=== PATIENT | female | born 1960 | race Hispanic/Latino ===

== ENCOUNTER 2018-08-07 05:24 | Observation (INO) | payer BC ==
[~2018-08-07] VITALS: Ht 165.1 cm; Wt 75.3 kg
[~2018-08-07 05:24] MED LIST: SLEEP AID25 M1; VITAMIN D3400 UNIT
[2018-08-07] MEDS ORDERED: CEFAZOLIN SOD 2 GM/D5W 50ML 50 ML IV ONE (06:32)
[2018-08-07] MEDS ORDERED: GABAPENTIN 300 MG CAP ONE (06:32)
[2018-08-07] MEDS ORDERED: CELECOXIB 200 MG CAP ONE (06:32)
[2018-08-07] MEDS ORDERED: DEXAMETHASONE SOD PHOS 10 MG/1 ML VIAL ONE (06:32)
[2018-08-07] MEDS ORDERED: SODIUM CHLORIDE 0.9% 500ML 500 ML ONE (06:37)
[2018-08-07] MEDS ORDERED: VANCOMYCIN HCL 1,000 MG ONE (06:37)
[2018-08-07] MEDS ORDERED: TRANEXAMIC ACID 1,000 MG/10 ML ML ONE (06:38)
[2018-08-07] MEDS ORDERED: BACITRACIN 50,000 UNIT VIAL ONE (06:38)
[2018-08-07] MEDS ORDERED: [UNRECOGNIZED DRUG - OTHER] PO (06:47)
[2018-08-07] MEDS ORDERED: VENTOLIN HFA18 GM INH (06:47)
[2018-08-07] MEDS ORDERED: ROPIVACAINE 246.25 MG, EPINEPHRINE HCL 1:1000 1ML 0.5 MG, CLONIDINE HCL 0.08 MG, KETORO... INJ ONE ×5 (07:30)
[2018-08-07] MEDS: ASPIRIN 325 MG TAB PO SCH ×2 (08:40→17:37)
[2018-08-07] MEDS: SODIUM CHLORIDE 0.9% 1000ML 1,000 ML IV SCH ×2 (08:50→17:07)
[2018-08-07] MEDS ORDERED: PROMETHAZINE HCL (IM) 25 MG/ML VIAL INJ PRN (09:00)
[2018-08-07] MEDS ORDERED: CELECOXIB 100 MG CAP PO SCH (09:00)
[2018-08-07] MEDS ORDERED: ZOLPIDEM TARTRATE 5 MG TAB PO PRN (09:00)
[2018-08-07] MEDS ORDERED: HYDROCODONE/APAP 5MG-325MG TAB PO PRN (09:00)
[2018-08-07] MEDS ORDERED: HYDROCODONE/APAP 7.5MG-325MG 1 EA TAB PO PRN (09:00)
[2018-08-07] MEDS ORDERED: ONDANSETRON HCL INJ 2MG/ML 2ML 2 MG/ML VIAL IV PRN (09:00)
[2018-08-07] MEDS ORDERED: DIPHENHYDRAMINE HCL INJ 50 MG/ML VIAL IM/IV PRN (09:00)
[2018-08-07] MEDS ORDERED: ACETAMINOPHEN 650 MG SUPP PR PRN (09:00)
[2018-08-07] MEDS ORDERED: DOCUSATE SODIUM 100 MG CAP PO PRN (09:00)
[2018-08-07] MEDS ORDERED: KETOROLAC TROMETHAMINE 30 MG/ML VIAL IV PRN ×2 (09:00→12:00)
[2018-08-07] MEDS ORDERED: HYDROMORPHONE 2MG/ML 2 MG/ML ML ONE (09:14)
[2018-08-07] MEDS ORDERED: FENTANYL CITRATE/PF 100MCG/2 ML INJ ONE ×2 (09:26→19:55)
--- NOTE | 2018-08-07 10:14 | Diagnostic Imaging Report ---
Exam: Right knee series; portable 2 views dated 08/07/2018 History: Knee replacement Comparison: None available Findings: Total knee prosthesis is present. Midline surgical kiana and air in the joint space is noted. Impression: Status post total knee replacement with prosthesis in good position Signed by: Dr. Johny Chandra DO on 08/07/2018 10:11 AM
--- OUTSIDE RECORDS SUMMARY | 2018-08-07 11:06 | XMS REPORT ---
Author Author [facility] Address Unknown Phone Unavailable Care Team Providers Care Director Trial Name Role Phone ENDY DAUGHERTY Unavailable Unavailable Payers Payer Name Policy Type Policy Number Effective Date Expiration Date Problems This patient has no known problems. Allergies, Adverse Reactions, Alerts Allergy Name Allergy Type Status Severity Reaction(s) Onset Date Inactive Date Treating Clinician Comments No Known Allergies DA Active U 2012-04-24 00:00:00 Medications This patient has no known medications. Results Test Description Test Time Test Comments Text Results Atomic Results Result Comments KNEE RIGHT 1-2 VIEWS 2018-08-07 10:08:00 [place] [id number] Patient Name: WILLIS THAYER MR #: [id number] : 1960 Age/Sex: 58/F Req #: [id number] Adm Physician: Ordered by: ENDY DAUGHERTY MD Report #: [id number] Location: OR Room/Bed: Procedure: [id number] DX/KNEE RIGHT 1-2 VIEWS Exam Date: 08/07/18 Exam Time: 919 REPORT STATUS: Signed Exam: Right knee series; portable 2 views dated 08/08/19 19 History: Knee replacement Comparison: None available Findings: Total knee prosthesis is present. Midline surgical kiana and air in the joint space is noted. Impression: Status post total knee replacement with prosthesis in good position Signed by: Dr. Ash Chandra DO on 08/07/2018 10:11 AM Dictated By: ASH CHANDRA DO 1011 Transcribed By: JF on 08/07/18 1011 COPY TO: ENDY DAUGHERTY MD
--- NOTE | 2018-08-07 11:42 | NUR ---
Patient transferred to unit from PACU. Patient is post op right knee replacement. Dressing clean and dry to right knee. Pedal pulses palpable. Lung rosario clear to auscultation. Bowel sounds present x4 but hypoactive. left forearm IV in place. Patient is due to void. Latvian speaking only
[2018-08-07 12:00] VITALS: BP 116/60
[2018-08-07] MEDS ORDERED: DESFLURANE 240 ML BTL INH ONE (13:12)
[2018-08-07] MEDS ORDERED: LIDOCAINE HCL 2% LOCAL INJ 5 ML SDV VIAL INJ ONE (13:12)
[2018-08-07] MEDS ORDERED: LIDOCAINE HCL 2% JELLY 5 ML TUBE ONE (13:12)
[2018-08-07] MEDS ORDERED: ONDANSETRON HCL INJ 2MG/ML 2ML 2 MG/ML VIAL ONE (13:12)
[2018-08-07] MEDS ORDERED: PROPOFOL IV EMULSION 10 MG/ML 20 ML VIAL ONE (13:12)
--- NOTE | 2018-08-07 13:13 | Operative Report ---
DATE OF PROCEDURE: 08/07/2018 SURGEON: Doug Chen MD SANITATION MANAGER: Alec Poe, certified PA. PREOPERATIVE DIAGNOSIS: Osteoarthritis, right knee. POSTOPERATIVE DIAGNOSIS: Osteoarthritis, right knee. PROCEDURE: Right total knee arthroplasty. INDICATIONS: The patient is an active 58-year-old lady, who has end-stage arthritis of her right knee. She has failed conservative management and would like to proceed with a right knee replacement. The risks and benefits of the surgery have been explained. She states she understands and wishes to proceed. PROCEDURE IN DETAIL: The patient was brought to the operating room and placed under general anesthetic. She received prophylactic antibiotics, a regional block and tranexamic acid in the holding area. Her right lower extremity was prepped and draped in the sterile manner. A preoperative time-out was performed. The extremity was exsanguinated and a proximal tourniquet was inflated to 300 mmHg. An anterior approach with a medial parapatellar arthrotomy was performed. Clear synovial fluid was removed from the joint. Soft tissue releases were performed to bring the knee up into flexion with the patella everted. The anterior cruciate ligament was sacrificed. Marginal osteophytes and meniscal remnants were carefully removed. A RiosNoteSicket Persona knee system was used throughout the case. An extramedullary cutting guide was placed onto the leg. The tibia was resected with a +4 mm cut, referenced off the medial compartment. The tibial base plate was a size number D. The central fin punch was impacted and attention was directed toward the distal femur. An intramedullary cutting guide was used to resect the distal femur in 5 degrees of valgus and rotation referencing off a combination of landmarks including Whitesides line, the epicondylar axis and the posterior condyles. The femoral component was a size #5. The anterior and posterior cuts were made. Trial reductions were performed. A 10 mm medial congruent insert provided appropriate soft tissue balancing in full extension and 90 degrees of flexion. The patella was resurfaced with a 29 mm patellar button. The thickness was checked before and after and was right at 22 mm. Patellar tracking was noted to be concentric. The trial implants were then all removed. A 100 mL premixed pericapsular NOHEMI injection was injected into the surrounding soft tissue. The knee was thoroughly irrigated with a shower tip pulsatile lavage. Throughout the case, a spray bottle of diluted polymyxin and vancomycin was used to irrigate the bone cut and irrigate the knee. A single mix of Palacos cement preloaded with antibiotics was used to cement the components into place. Care was taken to remove extravasated cement. The wound was further irrigated while the cement cured. The arthrotomy was then closed with interrupted #1 Ethibond. The knee was put through flexion and extension to ensure a secure closure. The skin was closed with subcuticular Vicryl and kiana. A sterile Aquacel bandage was applied. The patient was extubated and transported to the recovery room in stable condition. Blood loss was minimal. All needle and sponge counts were correct. Doug Chen MD DR/SONY /[id number]
[2018-08-07 13:24] VITALS: BP 116/60
[2018-08-07 13:27] VITALS: BP 116/60
--- NOTE | 2018-08-07 13:51 | NUR ---
Visit made by the Spiritual Care Department Pastoral Visitor, Cielo England. Pt sleeping soundly and no family present. Pastoral Visitor left a card describing availability of banking analyst and instructions on how to contact a banking analyst. BEATRIZ OCONNOR [employer] Spiritual Care Department O: [phone] Pager: [phone] ([phone] number calling from)
[2018-08-07] MEDS: ACETAMINOPHEN 1000 MG/100 ML IV SCH ×3 (14:05→23:05)
[2018-08-07] MEDS: CEFAZOLIN SOD 1 GM/NS 50ML 50 ML IV SCH ×2 (14:06→22:00)
[2018-08-07] MEDS ORDERED: LIDOCAINE 2% /EPINEPHRINE 20 ML SDV INJ ONE (14:16)
[2018-08-07] MEDS ORDERED: ROPIVACAINE 0.5% 5 MG/ML 30 ML SDV ONE (14:16)
--- NOTE | 2018-08-07 15:00 | NUR ---
Patient c/o nausea and not feeling well. PRN antiemetic given. Therapy working with patient and threw up again. Patient voided at this time as well
[2018-08-07] MEDS ORDERED: SODIUM CHLORIDE 0.9% 50ML 50 ML ONE (15:08)
[2018-08-07 16:06] VITALS: BP 119/67
[2018-08-07] MEDS: CELECOXIB 200 MG CAP PO SCH (17:36)
--- NOTE | 2018-08-07 17:46 | NUR ---
Patient is requesting per family translation to hold off on CPM until later this evening
[2018-08-07] MEDS ORDERED: MIDAZOLAM HCL 2 MG/2 ML VIAL ONE (19:55)
[2018-08-07 20:12] VITALS: BP 105/59
[2018-08-08 00:13] VITALS: BP 92/49
[2018-08-08] MEDS: SODIUM CHLORIDE 0.9% 1000ML 1,000 ML IV SCH (04:42)
[2018-08-08 05:36] VITALS: BP 113/57
--- NOTE | 2018-08-08 05:45 | NUR ---
PLACED ON CPM 60 AT THIS TIME.
[2018-08-08] MEDS: CEFAZOLIN SOD 1 GM/NS 50ML 50 ML IV SCH (05:48)
[2018-08-08] MEDS: ACETAMINOPHEN 1000 MG/100 ML IV SCH (05:52)
[2018-08-08 06:30] LABS: HEMATOCRIT 34.9 % (34.2-44.1); HEMOGLOBIN 11.3 g/dL (12.0-16.0)
--- NOTE | 2018-08-08 06:36 | Consultation ---
DATE OF CONSULTATION: REASON FOR CONSULTATION: Postop medical management. HISTORY OF PRESENT ILLNESS: The patient is a 58-year-old lady, status post right total knee arthroplasty for end-stage osteoarthritis. She complains of minimal right pain of the knee and denies any chest pain, fever, chills, nausea, vomiting, headache, or shortness of breath on review of systems. PAST MEDICAL HISTORY: Significant for asthma and osteoarthritis. MEDICATIONS: See MAR. ALLERGIES: NONE. SOCIAL HISTORY: Nonsmoker and nondrinker. Lives at home with her . FAMILY HISTORY: Positive for asthma. PHYSICAL EXAMINATION: VITAL SIGNS: Temperature 98.0, pulse 74, blood pressure 92/49, and sats 100% on room air. GENERAL: She is no apparent distress, lying in bed. LUNGS: Clear to auscultation bilaterally. NECK: No lymphadenopathy. CARDIOVASCULAR: Regular rate and rhythm. ABDOMEN: Good bowel sounds. Soft and nontender. EXTREMITIES: No clubbing or cyanosis. NEUROLOGIC: Nonfocal. ASSESSMENT AND PLAN: 1. Hypotension. Continue to monitor since she is asymptomatic. 2. Anemia. Check a CBC. 3. History of asthma. Continue to monitor since she is asymptomatic at this point. Please see hospital chart for full details. MD RIO March/SONY /[id number]
[2018-08-08 07:30] VITALS: BP 111/58
[2018-08-08] MEDS: ASPIRIN 325 MG TAB PO SCH (08:40)
[2018-08-08] MEDS: CELECOXIB 200 MG CAP PO SCH (08:40)
[2018-08-08] MEDS ORDERED: ASPIRIN325 MG PO (08:41)
[2018-08-08] MEDS ORDERED: ONDANSETRON HCL 4 MG ORAL DISINTEGRATING TAB PO PRN (09:00)
[2018-08-08] MEDS ORDERED: ACETAMINOPHEN 1000 MG/100 ML IV PRN (09:00)
[2018-08-08 10:03] VITALS: BP 111/58
--- NOTE | 2018-08-08 11:05 | NUR ---
CASE MANAGEMENT ASSESSMENT Cinder Snapper to bedside to discuss plan of care with patient/family. CM/SW role and care transitions discussed. Anticipated discharge plan discussed along with duration of care. CM/SW discussed patients right to make decisions in care. CM/SW work hours given. Patient lives: with her Dorys Brown Admit/Transfer: thru PACU Hospital/ER visits since last admit: 0 POA/Emergency contact: daughter Lily Frederick [phone] Current/Previous Home Health: none previously. Referral for home health sent from Dr. Chen's office to [facility] [place]. CM spoke to Avani Galindo, liaison with [facility] and he stated that they will be out to see pt tomorrow. They have Sinhala speaking staff who will see pt. . PCP/Follow-up Care: will follow up with Dr. Chen next week Current/Previous DME: walker, BSC, and CPM has been delivered to pt's house. stated he has her walker in his truck Medications (referring to index hospitalization or the first time you were in the hospital) a. Were changes made in your medications when you were in the hospital on [date of index hospitalization]? n/a b. Did you understand the changes? n/a c. Were you able to obtain your new medications right away? n/a d. Were you able to take your medications like the doctor wanted you to? n/a e. Did the hospital give you an accurate, easy to understand list of medications when you left? n/a Scale of 1-10 how comfortable does patient feel with disease management in outpatient settin Other Services: none Employment Status: unemployed Areas of Concerns: recent surgery Referral Needs: home health Education Needs: post operative care, medical management IMM/HASSAN given and signed (if applicable): n/a Goal for discharge: home with home health CM/SW left business card at the bedside with contact information. Name and number was also written on the patients whiteboard. Patient verbalized understanding of discussion. CM will follow-up with ongoing discharge and transition of care needs.
== END 2018-08-08 13:00 | disposition home health service (06) ==
LOC: OR 05:24 → PACU V 08:53 → MED/SURG 11:53
PROVIDERS: ADMIT Specialist; ATTEND Specialist
DX: M17.11 Unilateral primary osteoarthritis, right knee (principal); J45.909 Unspecified asthma, uncomplicated; D64.9 Anemia, unspecified
CPT/HCPCS: 27447; 36415; 73560; 85014; 85018; 86850; 86900; 86920; 97110; 97116 ×2; 97161; G0378 ×2; J0131; J0171; J0690 ×3; J1100; J1170; J1885; J2001 ×3; J2250; J2405; J2550; J2704; J2795; J3370; J7040